=== PATIENT | male | born 1980 | race African-American/Black ===

== ENCOUNTER 2017-03-23 08:15 | Day surgery (SDC) | payer BC ==
[~2017-03-23] VITALS: Ht 188 cm; Wt 102.5 kg
[2017-03-23 09:30] VITALS: BP 126/62; Ht 188 cm; Wt 102.5 kg
--- NOTE | 2017-03-23 11:33 | HP ---
PATIENT: DMITRY TOMLINSON MEDICAL RECORD: [id number] ACCOUNT: [id number] [facility] ADMISSION DATE: 03/23/17 HISTORY AND PHYSICAL EXAMINATION HISTORY OF PRESENT ILLNESS: Dmitry is 36 years old. He has had problems with nasal obstruction as well as persistent sore throats and recurrent uvula edema. He is being admitted for tonsillectomy, uvulectomy and bilateral inferior turbinate reduction. PAST MEDICAL HISTORY: Otherwise negative. PAST SURGICAL HISTORY: Includes right knee ACL repair, cholecystectomy, and bilateral shoulder surgeries. CURRENT MEDICATIONS: None. ALLERGIES: No known drug allergies. PHYSICAL EXAMINATION: GENERAL: He is healthy-appearing, developmentally normal. FACE: Normal, symmetric, no lesions. EYES: Sclerae and conjunctivae are normal. EARS: Canals and TMs are normal. NOSE: No masses, polyps, or drainage. He has had a really large inferior turbinates. ORAL CAVITY AND OROPHARYNX: A 3+ caseous tonsils. Long boggy uvula. NECK: No masses, no adenopathy. CHEST: Clear. CARDIOVASCULAR: Regular rate and rhythm, no murmur. EXTREMITIES: Normal. IMPRESSION: Nasal obstruction, turbinate hypertrophy, chronic caseous tonsillitis and recurrent uvula edema. PLAN: Tonsillectomy, uvulectomy and bilateral inferior turbinate reduction. TRANSINT:[id number] Voice Confirmation ID: [id number] DOCUMENT ID: [id number] RANDA HAQ MD at 1133 CC: [id number] DICTATION DATE: 03/22/17 1003 SPRINKLER FITTER HELPER: 03/22/17 1057 [facility] [address] [place] [address]
--- NOTE | 2017-03-23 12:34 | NUR ---
ATTEMPTED TO NOTIFY FAMILY, ROOM 2511. NO ANSWER TO PHONE CALL.
--- NOTE | 2017-03-23 13:55 | NUR ---
CONSULTED WITH DR EUN IVERSON PT OBSTRUCTING AIRWAY WHILE IN PACU. ADVISED THAT PT WILL IMPROVE ONCE COMPLETELY AWAKE, NO INTERVENTION NEEDED.
--- NOTE | 2017-03-23 14:58 | NUR ---
1400 BACK FROM TONSILLECTOMY. EYES CLOSED AND SNORING. RESP EVEN AND NONLABORED SNORING LOUDLY.
--- NOTE | 2017-03-23 15:16 | NUR ---
1450 MEDICATED WITH LORATAB ELIXIR.
--- NOTE | 2017-03-23 17:34 | NUR ---
1515 WAKING UP SOME PAIN SOME BETTER UP AND VOIDED. IV DCD CATHETER INTACT. WENT OVER TONSILLECTOMY INSTRUCTIONS AND VERBALLY UNDERSTANDS. 1530 TO HOME VIA W/C WITH FICRYS.
--- NOTE | 2017-03-27 12:55 | OP ---
PATIENT NAME: ACE TOMLINSON MEDICAL RECORD: [id number] :76 [facility] DATE: SURGEON: RANDA GALE MD DATE OF OPERATION: 03/23/2017 PREOPERATIVE DIAGNOSES: Chronic tonsillitis, recurrent uvula edema, nasal obstruction and turbinate hypertrophy. POSTOPERATIVE DIAGNOSES: Chronic tonsillitis, recurrent uvula edema, nasal obstruction and turbinate hypertrophy. PROCEDURES: 1. Tonsillectomy. 2. Uvulectomy 3. Bilateral inferior turbinate reduction. SURGEON: Randa Gale MD ANESTHESIA: General orotracheal. BLOOD LOSS: Less than 5 cc. SPECIMENS: Right and left tonsil. COMPLICATIONS: None. DISPOSITION: Recovery stable. DESCRIPTION OF PROCEDURE: He was brought to the operating room and placed in supine position, sedated and intubated by anesthesia. The table was turned 90 degrees. A head drape was applied and he was positioned for tonsillectomy. Using a headlight, a Kirsten-John mouth gag was carefully inserted and elevated on a towel on his chest. The palate was examined and palpated. It was normal. A red rubber catheter was placed through the right side of the nose into the pharynx and grasped with tonsil clamp to retract the soft palate. Using a mirror, the nasopharynx was examined. Suction cautery on a setting of 35 was used to ablate some adenoid tissue and then cauterized the posterior aspect of the inferior turbinates bilaterally. The red rubber catheter was let down and removed. Then, both sides of the nose were examined with the nasal speculum and headlight and the inferior turbinates were injected with a total of less than a cc of 1% lidocaine 1:100,000 epinephrine and two Afrin pledgets were placed in each side of the nose. The right tonsil was grasped at the superior pole with a straight Allis clamp. Spatula tip cautery on a setting of 9 was used to dissect out the tonsil along its capsule, preserving the anterior and posterior tonsillar pillar. The left tonsil was removed in the same fashion. Then, the uvula, which was extremely long was grasped at the tip. Spatula tip cautery on a setting of 9 was used to divide and removed about 80% of the uvula, leaving all the mucosa of the palate intact. Once that was done, the uvula defect was closed with interrupted 3-0 Vicryl. The superior tonsillar pillars were sutured with horizontal mattress sutures with 3-0 Vicryl as well bilaterally with the pharynx clean and dry. The Kirsten-John mouth gag was let down and removed and all the Afrin pledgets were removed from the nose. A freer was used and medialized both inferior turbinates. A Gruenwald was used to take down the inferior redundant portion of the turbinates. Suction cautery on a setting of 25 was used to stop any bleeding and both inferior turbinates were outfractured OPERATIVE REPORT [id number] ACE TOMLINSON with a [place] elevator. There was no bleeding. The nasopharynx was suctioned. He was then awakened, extubated, and transported to recovery in good condition. No complications. TRANSINT:[id number] Voice Confirmation ID: [id number] DOCUMENT ID: [id number] RANDA GALE MD at 1255 CC: [id number] DICTATION DATE: 03/23/17 1339 CLAIM AUDITOR: 03/23/17 2253 [facility] 03/23/17 [facility] [address] [place] [address]
== END 2017-03-23 15:30 | disposition home or self-care (01) ==
LOC: D.OPS 08:15 → D.PAN 10:15 → D.OPS 10:15
DX: J35.01 Chronic tonsillitis (principal); K13.79 Other lesions of oral mucosa; J34.89 Other specified disorders of nose and nasal sinuses; J34.3 Hypertrophy of nasal turbinates; Z01.812 Encounter for preprocedural laboratory examination

== ENCOUNTER → 2018-01-01 19:51 | Outpatient (CLI) | payer BC ==
[2017-03-23 09:30] VITALS: BMI 29.0
== END | disposition home or self-care (01) ==
LOC: D.SLEEP 08:00
DX: G47.33 Obstructive sleep apnea (adult) (pediatric) (principal)